=== PATIENT | female | born 1940 | race Caucasian/White ===

== ENCOUNTER 2017-05-13 11:41 | Observation (INO) | payer MEDICARE ==
--- NOTE | 2017-05-13 12:51 | ED ---
Abdominal Pain HPI - General Chief Complaint: Abdominal Pain Stated Complaint: abdominal pain Time Seen by Provider: 05/13/17 12:20 Source: patient, RN notes reviewed Mode of arrival: ambulatory Limitations: no limitations - History of Present Illness Initial Comments: This is a 77-year-old female who presents with complaints of right sided lower abdominal discomfort. She states it feels crampy currently is pain-free but it does get moderate in severity she was seen at [facility] 2 weeks ago she was diagnosed after having gas possible spastic colon shingles he was seen at [facility] and admitted for day with abdominal cramps she is found have a potassium 2.6 was raised to 3.3 before she was discharged apparently she had EKG monitoring which did not show anything in particular. She presents today because she still has persistent lower abdominal pain in spite of multiple CAT scans has no diagnosis she does have a history of aortic aneurysm no heart disease no history of gastritis though she was diagnosed please with gastroenteritis no known history of gallbladder disease. MD Complaint: abdominal pain - Related Data Home Medications Medication Instructions Recorded Confirmed Atorvastatin [Lipitor] 20 mg PO HS 01/29/15 05/13/17 Cholecalciferol [Vitamin D3] 2,000 unit PO DAILY 01/29/15 05/13/17 Cyanocobalamin [Vitamin B-12] 1,000 mcg PO DAILY 01/29/15 05/13/17 Enalapril [Vasotec] 5 mg PO HS 01/29/15 05/13/17 Levothyroxine Sodium [Synthroid] 137 mcg PO DAILY 01/29/15 05/13/17 Acetaminophen-Codeine 300-30mg 1 tab PO HS 05/13/17 05/13/17 [Tylenol #3] Cholestyramine (with Sugar) 4 gm PO DAILY 05/13/17 05/13/17 [Questran] Gabapentin [Neurontin] 300 mg PO HS 05/13/17 05/13/17 Omeprazole 20 mg PO DAILY 05/13/17 05/13/17 Potassium Chloride [Klor-Con 20] 20 meq PO DAILY 05/13/17 05/13/17 Allergies Allergy/AdvReac Type Severity Reaction Status Date / Time Sulfa (Sulfonamide Allergy Rash/Hives Verified 05/13/17 12:32 Antibiotics) meperidine HCl [From Demerol] AdvReac Unknown Nausea & Verified 05/13/17 12:32 Vomiting Review of Systems ROS Statement: Those systems with pertinent positive or pertinent negative responses have been documented in the HPI. ROS Other: All systems not noted in ROS Statement are negative. Past Medical History Past Medical History: Eye Disorder, GERD/Reflux, Hyperlipidemia, Hypertension, Osteoarthritis (OA), Thyroid Disorder Additional Past Medical History / Comment(s): has aortic aneurysm-dr. monitoring History of Any Multi-Drug Resistant Organisms: None Reported Past Surgical History: Hysterectomy, Orthopedic Surgery Additional Past Surgical History / Comment(s): foot surg., cystocele/rectocele repair, eye surgery. Past Anesthesia/Blood Transfusion Reactions: No Reported Reaction Past Psychological History: No Psychological Hx Reported Smoking Status: Never smoker Past Alcohol Use History: Rare Past Drug Use History: None Reported - Past Family History Mother Family Medical History: Cancer Father Family Medical History: Cancer Sister(s) Family Medical History: Cancer General Exam - General Exam Comments Initial Comments: This is a well-developed well-nourished awake alert oriented 3 female Limitations: no limitations General appearance: alert, in no apparent distress Head exam: Present: atraumatic, normocephalic, normal inspection Eye exam: Present: normal appearance, PERRL, EOMI. Absent: scleral icterus, conjunctival injection, periorbital swelling ENT exam: Present: normal exam, mucous membranes moist Neck exam: Present: normal inspection. Absent: tenderness, meningismus, lymphadenopathy Respiratory exam: Present: normal lung sounds bilaterally. Absent: respiratory distress, wheezes, rales, rhonchi, stridor Cardiovascular Exam: Present: regular rate, normal rhythm, normal heart sounds. Absent: systolic murmur, diastolic murmur, rubs, gallop, clicks GI/Abdominal exam: Present: soft, normal bowel sounds, other (A rash on the right flank area consistent with herpes zoster no weeping of the wounds were now. Examination reveals to be soft with minimal tenderness palpation no guarding rebound masses or bruits). Absent: distended, tenderness, guarding, rebound, rigid Extremities exam: Present: normal inspection, full ROM, normal capillary refill. Absent: tenderness, pedal edema, joint swelling, calf tenderness Back exam: Present: normal inspection Neurological exam: Present: alert, oriented X3, CN II-XII intact Psychiatric exam: Present: normal affect, normal mood Skin exam: Present: warm, dry, intact, normal color. Absent: rash Course Vital Signs 05/13/17 05/13/17 05/13/17 12:13 13:24 15:03 Temperature 97.8 F Pulse Rate 74 65 65 Respiratory 18 16 16 Rate Blood Pressure 166/70 149/74 179/82 O2 Sat by Pulse 99 98 100 Oximetry Medical Decision Making - Medical Decision Making The patient will be admitted to the hospital this is her fourth medical facility visit this week for undiagnosed abdominal pain. She does get increased symptoms when she tries to eat. She has had decreased oral intake. - Lab Data Result diagrams: 05/13/17 12:55 05/13/17 12:55 Lab Results 05/13/17 05/13/17 05/13/17 Range/Units 12:55 12:55 12:55 WBC 4.3 (3.8-10.6) k/uL RBC 4.14 (3.80-5.40) m/uL Hgb 13.2 (11.4-16.0) gm/dL Hct 38.2 (34.0-46.0) % MCV 92.1 (80.0-100.0) fL MCH 31.7 (25.0-35.0) pg MCHC 34.5 (31.0-37.0) g/dL RDW 14.5 (11.5-15.5) % Plt Count 235 (150-450) k/uL Neutrophils % 59 % Lymphocytes % 26 % Monocytes % 7 % Eosinophils % 4 % Basophils % 1 % Neutrophils # 2.5 (1.3-7.7) k/uL Lymphocytes # 1.1 (1.0-4.8) k/uL Monocytes # 0.3 (0-1.0) k/uL Eosinophils # 0.2 (0-0.7) k/uL Basophils # 0.0 (0-0.2) k/uL Sodium 143 (137-145) mmol/L Potassium 3.9 (3.5-5.1) mmol/L Chloride 108 H (98-107) mmol/L Carbon Dioxide 25 (22-30) mmol/L Anion Gap 10 mmol/L BUN 11 (7-17) mg/dL Creatinine 0.50 L (0.52-1.04) mg/dL Est GFR (CKD-EPI)AfAm >90 (>60 ml/min/1.73 sqM) Est GFR (CKD-EPI)NonAf >90 (>60 ml/min/1.73 sqM) Glucose 88 (74-99) mg/dL Plasma Lactic Acid Jarod (0.7-2.0) mmol/L Calcium 9.5 (8.4-10.2) mg/dL Total Bilirubin 0.7 (0.2-1.3) mg/dL AST 16 (14-36) U/L ALT 24 (9-52) U/L Alkaline Phosphatase 59 (38-126) U/L Total Creatine Kinase 53 (30-135) U/L CK-MB (CK-2) 1.6 (0.0-2.4) ng/mL CK-MB (CK-2) Rel Index 3.0 Troponin I <0.012 (0.000-0.034) ng/mL Total Protein 6.4 (6.3-8.2) g/dL Albumin 4.0 (3.5-5.0) g/dL Amylase 61 (30-110) U/L Lipase 72 (23-300) U/L Urine Color Urine Appearance (Clear) Urine pH (5.0-8.0) Ur Specific [place] (1.001-1.035) Urine Protein (Negative) Urine Glucose (UA) (Negative) Urine Ketones (Negative) Urine Blood (Negative) Urine Nitrite (Negative) Urine Bilirubin (Negative) Urine Urobilinogen (<2.0) mg/dL Ur Leukocyte Esterase (Negative) Urine RBC (0-5) /hpf Urine WBC (0-5) /hpf Urine Mucus (None) /hpf 05/13/17 05/13/17 Range/Units 12:55 13:21 WBC (3.8-10.6) k/uL RBC (3.80-5.40) m/uL Hgb (11.4-16.0) gm/dL Hct (34.0-46.0) % MCV (80.0-100.0) fL MCH (25.0-35.0) pg MCHC (31.0-37.0) g/dL RDW (11.5-15.5) % Plt Count (150-450) k/uL Neutrophils % % Lymphocytes % % Monocytes % % Eosinophils % % Basophils % % Neutrophils # (1.3-7.7) k/uL Lymphocytes # (1.0-4.8) k/uL Monocytes # (0-1.0) k/uL Eosinophils # (0-0.7) k/uL Basophils # (0-0.2) k/uL Sodium (137-145) mmol/L Potassium (3.5-5.1) mmol/L Chloride (98-107) mmol/L Carbon Dioxide (22-30) mmol/L Anion Gap mmol/L BUN (7-17) mg/dL Creatinine (0.52-1.04) mg/dL Est GFR (CKD-EPI)AfAm (>60 ml/min/1.73 sqM) Est GFR (CKD-EPI)NonAf (>60 ml/min/1.73 sqM) Glucose (74-99) mg/dL Plasma Lactic Acid Jarod 0.7 (0.7-2.0) mmol/L Calcium (8.4-10.2) mg/dL Total Bilirubin (0.2-1.3) mg/dL AST (14-36) U/L ALT (9-52) U/L Alkaline Phosphatase (38-126) U/L Total Creatine Kinase (30-135) U/L CK-MB (CK-2) (0.0-2.4) ng/mL CK-MB (CK-2) Rel Index Troponin I (0.000-0.034) ng/mL Total Protein (6.3-8.2) g/dL Albumin (3.5-5.0) g/dL Amylase (30-110) U/L Lipase (23-300) U/L Urine Color Light Yellow Urine Appearance Clear (Clear) Urine pH 5.0 (5.0-8.0) Ur Specific [place] 1.007 (1.001-1.035) Urine Protein Negative (Negative) Urine Glucose (UA) Negative (Negative) Urine Ketones Negative (Negative) Urine Blood Trace H (Negative) Urine Nitrite Negative (Negative) Urine Bilirubin Negative (Negative) Urine Urobilinogen <2.0 (<2.0) mg/dL Ur Leukocyte Esterase Negative (Negative) Urine RBC <1 (0-5) /hpf Urine WBC <1 (0-5) /hpf Urine Mucus Rare H (None) /hpf - Radiology Data Radiology results: report reviewed (I did review the imaging and reports no acute findings), image reviewed Disposition Clinical Impression: Abdominal pain, Herpes zoster Disposition: ADMITTED IP TO THIS HOSP Condition: Stable Referrals: Mikki Waller MD [Primary Care Provider] - 1-2 days
[2017-05-13 13:13] LABS: Basophils % (A) 1 %; Eosinophils # (A) 0.2 k/uL (0-0.7); Eosinophils % (A) 4 %; HCT 38.2 % (34.0-46.0); HGB 13.2 gm/dL (11.4-16.0); Lymphocytes # (A) 1.1 k/uL (1.0-4.8); Lymphocytes % (A) 26 %; MCH 31.7 pg (25.0-35.0); MCHC 34.5 g/dL (31.0-37.0); MCV 92.1 fL (80.0-100.0); Mean Platelet Volume 7.1; Monocytes # (A) 0.3 k/uL (0-1.0); Monocytes % (A) 7 %; Neutrophils # (A) 2.5 k/uL (1.3-7.7); Neutrophils % (A) 59 %; Platelet Count 235 k/uL (150-450); RBC 4.14 m/uL (3.80-5.40); RDW 14.5 % (11.5-15.5); WBC 4.3 k/uL (3.8-10.6)
[2017-05-13 13:22] LABS: ALT 24 U/L (9-52); AST 16 U/L (14-36); Alkaline Phosphatase 59 U/L (38-126); Amylase 61 U/L (30-110); Anion Gap 10 mmol/L; Blood Urea Nitrogen 11 mg/dL (7-17); Calcium 9.5 mg/dL (8.4-10.2); Carbon Dioxide 25 mmol/L (22-30); Chloride 108 mmol/L (98-107); Glucose 88 mg/dL (74-99); Lipase 72 U/L (23-300); Potassium 3.9 mmol/L (3.5-5.1); Sodium 143 mmol/L (137-145); Total Bilirubin 0.7 mg/dL (0.2-1.3); Total Protein 6.4 g/dL (6.3-8.2)
[2017-05-13 13:32] LABS: Creatine Kinase 53 U/L (30-135)
[2017-05-13 13:38] LABS: Appearance,Urine Clear (Clear); Bilirubin,Urine Negative (Negative); Blood,Urine Trace (Negative); Color,Urine Light Yellow; Glucose,Urine (UA) Negative (Negative); Ketones,Urine Negative (Negative); Leukocyte Esterase,Urine Negative (Negative); Mucus,Urine Rare /hpf; Nitrite,Urine Negative (Negative); Protein,Urine Negative (Negative); RBC,Urine <1 /hpf (0-5); Specific Gravity,Urine 1.007 (1.001-1.035); Urobilinogen,Urine <2.0 mg/dL (<2.0); WBC,Urine <1 /hpf (0-5)
--- NOTE | 2017-05-13 13:38 | XR ---
EXAMINATION TYPE: XR chest 2V DATE OF EXAM: 05/13/2017 COMPARISON: NONE HISTORY: Shortness of breath TECHNIQUE: Frontal and lateral views of the chest are obtained. FINDINGS: Scattered senescent parenchymal changes noted. No evidence for infiltrate. No evidence for atelectasis. Heart size is stable. Mediastinal structures are stable and grossly unremarkable. No evidence for hilar prominence. Degenerative changes dorsal spine. IMPRESSION: 1. No evidence for acute pulmonary disease.
--- NOTE | 2017-05-13 13:39 | XR ---
EXAMINATION TYPE: XR KUB DATE OF EXAM: 05/13/2017 COMPARISON: NONE HISTORY: Pain TECHNIQUE: Single supine KUB image of the abdomen is obtained FINDINGS: Small bowel demonstrates no evidence for dilatation or air fluid levels. Gas and fecal material is seen in non-distended colon. No convincing evidence for pneumoperitoneum. No unusual calcifications. The lung bases are clear. The osseous structures are intact. IMPRESSION: 1. Overall nonobstructive bowel gas pattern.
[2017-05-13 13:44] LABS: Creatine Kinase MB 1.6 ng/mL (0.0-2.4); Troponin I <0.012 ng/mL (0.000-0.034)
[2017-05-13] MEDS ORDERED: ONDANSETRON 4 MG/2 ML VIAL IVP PRN (16:07)
[2017-05-13] MEDS ORDERED: NALOXONE 0.4 MG/ML 1 ML VIAL IV PRN (16:07)
--- NOTE | 2017-05-13 17:22 | US ---
EXAMINATION TYPE: US gallbladder DATE OF EXAM: 05/13/2017 COMPARISON: NONE CLINICAL HISTORY: Pain. EXAM MEASUREMENTS: Liver Length: 12.2 cm Gallbladder Wall: 0.3 cm CBD: 0.5 cm Right Kidney: 12.1 x 4.0 x 4.6 cm Patient has extensive midline bowel gas. Pancreas: Upper limits of normal duct measuring 0.2cm Liver: 2 liver cysts noted, largest measuring 1.7 x 1.2 x 1.6cm Gallbladder: portions visualized wnl, however very limited views due to overlying bowel gas Evidence for sonographic Sykes's sign: no CBD: limited evaluation due to overlying bowel gas Right Kidney: No hydronephrosis or masses seen, inferior pole partially obscured by bowel gas IMPRESSION: Limited evaluation given overlying content. No distinct abnormality is appreciated at thi s time.
[2017-05-13] MEDS: Acetaminophen-Codeine 300-30mg TAB PO SCH (19:43)
[2017-05-13] MEDS: GABAPENTIN 300 MG CAP PO SCH (19:44)
[2017-05-13] MEDS: ATORVASTATIN 20 MG TAB PO SCH (19:44)
[2017-05-13] MEDS: LISINOPRIL 10 MG TAB PO SCH (19:44)
[2017-05-13] MEDS: PANTOPRAZOLE 40 MG/10 ML VIAL IV SCH (19:45)
[2017-05-13] MEDS: SODIUM CHLORIDE 0.9% 1,000 ML IV SCH (23:49)
[2017-05-14] MEDS: LEVOTHYROXINE 137 MCG TAB PO SCH (05:50)
[2017-05-14] MEDS: SODIUM CHLORIDE 0.9% 1,000 ML IV SCH ×3 (05:54→21:26)
[2017-05-14] MEDS: CYANOCOBALAMIN 500 MCG TAB PO SCH (07:54)
[2017-05-14] MEDS: CHOLECALCIFEROL 1,000 UNIT TAB PO SCH (07:54)
[2017-05-14] MEDS: CHOLESTYRAMINE (WITH SUGAR) 4 GM PACKET PO SCH (07:54)
[2017-05-14] MEDS: PANTOPRAZOLE 40 MG/10 ML VIAL IV SCH ×2 (07:59→20:38)
--- NOTE | 2017-05-14 08:01 | P.CONS ---
History of Present Illness - Reason for Consult Consult date: 05/14/17 Abdominal pain Requesting physician: Zee Ahn - History of Present Illness 77-year-old female recently evaluated by the GI service at [facility] on Wednesday of this week for UTI, intractable nausea vomiting upper midepigastric right upper quadrant abdominal pain diarrhea 2 weeks. Patient was treated for suspected gastroenteritis. Prior to discharge her diarrhea was improving with Questran as well as her upper GI symptoms. Yesterday her symptoms recurred reporting more pain when drinking or eating meals. She also has shingle breakout to the right flank. Denies hematemesis hematochezia melena. Ultrasound of the abdomen mentioning of stones. No distinct abnormalities appreciated at time of exam. White count 4.3. Hemoglobin 13.2. BUN 11. Creatinine 0.5. LFTs within normal limits. Lipase 72. Colonoscopy less than a year ago to her memory unremarkable. No recent EGD. Review of Systems Constitutional: Denies fever, chills, sweats, weight gain, or loss. HEENT: Negative for migraines, blurred vision or loss, earaches, drainage, tinnitus, oral mucosal lesions, dysphagia, or odynophagia. CARDIAC: Hyperlipidemia. Hypertension. Negative for chest pain, arrhythmias, or palpitation. RESPIRATORY: Asthma. Negative for shortness of breath, hemoptysis, cough, or sputum production. GI: See HPI for pertinent findings. : Negative for hematuria, urgency, frequency, polyuria, or dysuria. GYNc: Denies possibility of . Negative vaginal discharge. MUSCULOSKELETAL: Negative for muscle aches, swelling, arthritis, and arthralgias. NEUROLOGIC: Negative for stroke or TIA. ENDOCRINE: Negative for thyroid problems. SKIN: Presently with shingles. Negative for rash or itching. PSYCHIATRIC: Negative history for depression and anxiety Past Medical History Past Medical History: Asthma, Eye Disorder, GERD/Reflux, Hyperlipidemia, Hypertension, Osteoarthritis (OA), Thyroid Disorder Additional Past Medical History / Comment(s): has aortic aneurysm- monitoring History of Any Multi-Drug Resistant Organisms: None Reported Past Surgical History: Hysterectomy, Orthopedic Surgery Additional Past Surgical History / Comment(s): foot surg., cystocele/rectocele repair, eye surgery, cartaract removal, akanksha knee replacements Past Anesthesia/Blood Transfusion Reactions: No Reported Reaction Past Psychological History: No Psychological Hx Reported Smoking Status: Never smoker Past Alcohol Use History: Rare Past Drug Use History: None Reported - Past Family History Mother Family Medical History: Cancer Father Family Medical History: Cancer Sister(s) Family Medical History: Cancer Medications and Allergies Home Medications Medication Instructions Recorded Confirmed Type Atorvastatin [Lipitor] 20 mg PO HS 01/29/15 05/13/17 History Cholecalciferol [Vitamin D3] 2,000 unit PO DAILY 01/29/15 05/13/17 History Cyanocobalamin [Vitamin B-12] 1,000 mcg PO DAILY 01/29/15 05/13/17 History Enalapril [Vasotec] 5 mg PO HS 01/29/15 05/13/17 History Levothyroxine Sodium [Synthroid] 137 mcg PO DAILY 01/29/15 05/13/17 History Acetaminophen-Codeine 300-30mg 1 tab PO HS 05/13/17 05/13/17 History [Tylenol #3] Cholestyramine (with Sugar) 4 gm PO DAILY 05/13/17 05/13/17 History [Questran] Gabapentin [Neurontin] 300 mg PO HS 05/13/17 05/13/17 History Omeprazole 20 mg PO DAILY 05/13/17 05/13/17 History Potassium Chloride [Klor-Con 20] 20 meq PO DAILY 05/13/17 05/13/17 History Allergies Allergy/AdvReac Type Severity Reaction Status Date / Time Sulfa (Sulfonamide Allergy Rash/Hives Verified 05/13/17 12:32 Antibiotics) meperidine HCl [From Demerol] AdvReac Unknown Nausea & Verified 05/13/17 12:32 Vomiting Physical Exam Vitals: Vital Signs Temp Pulse Pulse Resp BP BP Pulse Ox 05/14/17 07:00 97.1 F L 66 22 128/71 97 05/13/17 22:47 99.7 F H 65 14 128/61 95 05/13/17 18:55 97.2 F L 75 18 192/89 97 05/13/17 18:12 98.7 F 68 19 179/80 99 05/13/17 15:03 65 16 179/82 100 05/13/17 13:24 65 16 149/74 98 05/13/17 12:13 97.8 F 74 18 166/70 99 Intake and Output 05/13/17 05/14/17 05/14/17 22:59 06:59 14:59 Other: # Voids 1 1 General appearance: The patient is alert, oriented, in no acute distress. HET: Head is normocephalic and atraumatic. Pupils are equal and reactive. Oropharynx is clear without lesions. Neck: Supple without lymphadenopathy. Trachea midline. Heart: S1 S2. Regular rate and rhythm. Lungs: No crackles or wheezes are heard. Abdomen: Soft, mild midepigastric tenderness, nondistended with bowel sounds. No peritoneal signs. No palpable organomegaly or masses. Extremities: Shingles breakout right flank with vesicles scabs. Normal skin color and turgor. No cyanosis, rash, ulceration, clubbing, or edema. Radial and pedal pulses are 2/4 bilaterally. Neurological: No focal deficits. Strength and sensation are grossly intact. Results CBC & Chem 7: 05/13/17 12:55 05/13/17 12:55 Labs: Abnormal Lab Results - Last 24 Hours (Table) 05/13/17 05/13/17 Range/Units 12:55 13:21 Chloride 108 H (98-107) mmol/L Creatinine 0.50 L (0.52-1.04) mg/dL Urine Blood Trace H (Negative) Urine Mucus Rare H (None) /hpf US - abdomen: report reviewed (Dr. Tucker) Assessment and Plan (1) Epigastric abdominal pain Narrative/Plan: 77-year-old female recently hospitalized earlier this week at an outside facility for suspected UTI and gastroenteritis with persistent abdominal pain especially with meals as well as herpes zoster outbreak. Differentials to consider is peptic ulcer disease possible biliary dyskinesia. Current Visit: Yes Status: Acute Code(s): R10.13 - EPIGASTRIC PAIN SNOMED Code(s): 46152233 (2) Herpes zoster Current Visit: Yes Status: Acute Code(s): B02.9 - ZOSTER WITHOUT COMPLICATIONS SNOMED Code(s): 0619612 Plan: 1. EGD and HIDA scan was discussed. Continue PPI twice a day. Continue cholestyramine. Presently without diarrhea. EGD today possible HIDA scan. Further recommendations forthcoming. The finishing powder press operator has discussed the risks, benefits and alternative therapies for the above-mentioned procedure and for both sedation/analgesia as well as necessary blood product administration, if indicated, as they pertain to this patient. The patient has indicated understanding and acceptance of the risks and procedures discussed. Thank you for this kind referral and the opportunity to participate in the care of your patient. This consultation was discussed with Dr. Tucker. The impression and plan of care have been directed as dictated.
--- NOTE | 2017-05-14 12:41 | NM ---
EXAMINATION TYPE: NM hepatobiliary w CCK DATE OF EXAM: 05/14/2017 COMPARISON: Ultrasound gallbladder 05/13/2017 HISTORY: Abdominal pain TECHNIQUE: After the intravenous administration of 5.11 mCi Tc 99m Mebrofenin hepatobiliary scintigra phy is performed. Immediate images post injection. FINDINGS: There is satisfactory initial accumulation of tracer by the liver. The gallbladder is visualized wit hin 10 minutes. The small bowel activity is noted on delayed images. At one hour CCK was administer ed, patient was injected with 1.2 mcg of Kinevac, and gallbladder ejection fraction is calculated at 80 %. Therefore there is no scintigraphic evidence of cystic or common bile duct obstruction to sugg est acute cholecystitis or gallbladder dyskinesia. IMPRESSION: There is delayed small bowel activity, gallbladder ejection fraction 80%.
[2017-05-14] MEDS: POTASSIUM CHLORIDE ER 20 MEQ TAB.ER PO SCH (13:27)
[2017-05-14 14:44] VITALS: BMI 23.6
[2017-05-14] MEDS: IBUPROFEN 400 MG TAB PO PRN (15:56)
--- NOTE | 2017-05-14 19:29 | HP ---
HISTORY AND PHYSICAL DATE OF SERVICE: 05/14/2017. CHIEF COMPLAINT: Abdominal pain. BRIEF HISTORY: Patient is a 77-year-old female patient transferred from [facility] where she was evaluated by GI series for possible UTI and intractable nausea, vomiting and upper mid epigastric pain for 2 weeks. Patient was treated for suspected gastroenteritis. The patient's symptoms worsened. In the meantime, patient had breakdown of shingles in the right flank area. The patient had ultrasound of the abdomen done. In the ED, patient's white blood count was found to be 4.3, hemoglobin 13, creatinine 0.5. The liver functions were normal. Lipase was 72. She is admitted for further GI evaluation. Patient's last colonoscopy was less than a year ago. PAST MEDICAL HISTORY: 1. Significant for asthma. 2. Gastroesophageal reflux disease. 3. Hyperlipidemia. 4. Hypertension. 5. Osteoarthritis. 6. Aortic aneurysm. PAST SURGICAL HISTORY: Significant for hysterectomy, cystocele and rectocele repair, eye surgery, cataract removal, bilateral knee replacement. SOCIAL HISTORY: Patient has no history of smoking or alcohol abuse. FAMILY HISTORY: Significant for history of cancer in the family. Patient is not sure which one. She is ALLERGIC TO SULFA DRUGS AND MEPERIDINE. MEDICATIONS: Patient is on Lipitor 20 mg q.h.s., vitamin D 2000 units p.o. daily, vitamin B12 1000 mcg daily, Vasotec 5 mg p.o. daily, Synthroid 137 mcg daily, Tylenol #3 1 tablet p.o. daily, cholestyramine 4 mg p.o. daily, Neurontin 300 mg p.o. q.h.s., omeprazole 20 mg daily, potassium chloride 20 mEq daily. REVIEW OF SYSTEM: CONSTITUTIONAL: Patient denies fever, chills or sweats, weight gain or weight loss. HEENT: Denies blurring of vision or loss of vision. No earache or speech problems. No migraines. CARDIAC: History of hypertension, hyperlipidemia. RESPIRATORY: History of asthma. GI: As per HPI. GENITOURINARY: Denies dysuria, hematuria. GYNECOLOGICAL: Denies vaginal discharge. MUSCULOSKELETAL: Denies joint swelling and tenderness. NEUROLOGICAL EXAMINATION: No dizziness, lightheadedness. ENDOCRINE: No history of thyroid problems. SKIN: Shingles per HPI. The rest of 14-point review of system is unremarkable. PHYSICAL EXAMINATION: GENERAL: Patient is awake, alert, oriented. She is in no acute distress. VITAL SIGNS: Temperature of 97.1, pulse 66, respiration 22, blood pressure 128/71, O2 saturation 97%. HEENT: Atraumatic, normocephalic. Pupils equal and reactive to light. Extraocular movements intact. Buccal mucosa is moist. NECK: Supple. No goiter, lymphadenopathy. JVD is negative. No carotid bruit heard. Lungs are clear to auscultate. No rales, rhonchi, or wheezes. Heart is regular rate and rhythm without any murmurs or gallop rhythm. ABDOMEN: Soft. Mild midepigastric tenderness. No distention. No guarding or rigidity. Bowel sounds positive. Patient on the right flank the patient has vesicular scabs. EXTREMITIES: No edema, clubbing, cyanosis. Pulses are palpable. NEUROLOGICAL EXAMINATION: Cranial nerves 2-12 grossly intact. No gross motor or sensory deficit. Skin as described above, right flank vesicular rash. LABS AND X-RAY DATA: Chemical profile: Sodium 143, potassium 3.9, chloride 108, bicarb 25, BUN 11, creatinine 0.50, glucose 88. CBC: White blood count of 4.3, hemoglobin 13.2, hematocrit 38.2, and platelet count of 235. ASSESSMENT: 1. Intractable nausea and vomiting. 2. Rule out acute cholecystis versus gastroenteritis versus herpes zoster. 3. Hypothyroidism. 4. Hypertension. 5. Hyperlipidemia. PLAN: Transfer patient to general medical medical floor. Start patient on IV fluids, keep her n.p.o. for HIDA scan. Consult Gastroenterology for possible EGD. MMODL / IJN: [id number] /
[2017-05-14] MEDS: GABAPENTIN 300 MG CAP PO SCH (20:38)
[2017-05-14] MEDS: LISINOPRIL 10 MG TAB PO SCH (20:38)
[2017-05-14] MEDS: Acetaminophen-Codeine 300-30mg TAB PO SCH (20:38)
[2017-05-14] MEDS: ATORVASTATIN 20 MG TAB PO SCH (20:38)
[2017-05-15] MEDS ORDERED: LACTATED RINGERS 1,000 ML IV SCH (06:30)
[2017-05-15 07:36] VITALS: RESP 22
[2017-05-15] MEDS ORDERED: IV FLUID CONTINUATION 1,000 ML IV ONE (07:55)
[2017-05-15] MEDS ORDERED: LIDOCAINE 1% INJ 10MG/ML (20 ML MDV) ONE (07:55)
[2017-05-15] MEDS ORDERED: PROPOFOL 10 MG/ML 20 ML VIAL IV ONE (07:55)
--- NOTE | 2017-05-15 08:11 | P.PCN ---
Date of Procedure: 05/15/17 Procedure(s) Performed: BRIEF HISTORY: Patient is a 77-year-old, pleasant, female, in the hospital with epigastric pain for the last 2 weeks' duration. She initially had some nausea vomiting and diarrhea and was treated with possible gastroenteritis but she continued to have persistent epigastric pain.. She is hence scheduled for an upper endoscopy to evaluate further PROCEDURE PERFORMED: Esophagogastroduodenoscopy With biopsy PREOPERATIVE DIAGNOSIS: chronic epigastric pain 2 weeks duration IV sedation per anesthesia. PROCEDURE: After informed consent was obtained, the patient was brought into the endoscopy unit. IV sedation was administered by Anesthesia under continuous monitoring. Initially the Olympus GIF-140 video endoscope was inserted into the mouth. Esophagus intubated without any difficulty. It was gradually advanced into the stomach and duodenum and carefully examined. The bulb and the second part of the duodenum appeared normal. The scope at this time was withdrawn to the stomach, adequately insufflated with air, and upon careful examination, mucosa of the antrum, body, cardia and the fundus appeared normal. The scope was then withdrawn into the esophagus. Small hiatal hernia noted. The GE junction was located at 35 cm from the incisors. There was Duran's esophagus noted in the distal esophagus extending from 32-35 cm from the incisors and multiple biopsies were done from this area. The rest of the esophagus appeared normal. There were no erosions or ulcerations seen and the patient tolerated the procedure well. 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 2.Small hiatal hernia ECOMMENDATIONS: The findings of this examination were discussed with the patient as well as a family. She was advised to follow with the biopsy results. In the meantime she will continue with Protonix 40 mg daily and follow antireflux measures.
[2017-05-15] MEDS: PANTOPRAZOLE 40 MG/10 ML VIAL IV SCH (08:43)
[2017-05-15] MEDS: LEVOTHYROXINE 137 MCG TAB PO SCH (08:43)
[2017-05-15] MEDS: POTASSIUM CHLORIDE ER 20 MEQ TAB.ER PO SCH (08:44)
[2017-05-15] MEDS: CYANOCOBALAMIN 500 MCG TAB PO SCH (08:44)
[2017-05-15] MEDS: CHOLECALCIFEROL 1,000 UNIT TAB PO SCH (08:44)
[2017-05-15] MEDS: CHOLESTYRAMINE (WITH SUGAR) 4 GM PACKET PO SCH (08:48)
[2017-05-15 09:41] LABS: Basophils % (A) 1 %; Eosinophils # (A) 0.1 k/uL (0-0.7); Eosinophils % (A) 4 %; HCT 35.8 % (34.0-46.0); HGB 11.8 gm/dL (11.4-16.0); Lymphocytes # (A) 0.6 k/uL (1.0-4.8); Lymphocytes % (A) 22 %; MCH 30.9 pg (25.0-35.0); MCHC 33.1 g/dL (31.0-37.0); MCV 93.5 fL (80.0-100.0); Mean Platelet Volume 7.6; Monocytes # (A) 0.4 k/uL (0-1.0); Monocytes % (A) 13 %; Neutrophils # (A) 1.6 k/uL (1.3-7.7); Neutrophils % (A) 57 %; Platelet Count 201 k/uL (150-450); RBC 3.83 m/uL (3.80-5.40); RDW 14.2 % (11.5-15.5); WBC 2.8 k/uL (3.8-10.6)
[2017-05-15 09:45] LABS: Anion Gap 10 mmol/L; Blood Urea Nitrogen 6 mg/dL (7-17); Calcium 8.8 mg/dL (8.4-10.2); Carbon Dioxide 25 mmol/L (22-30); Chloride 108 mmol/L (98-107); Glucose 85 mg/dL (74-99); Potassium 3.6 mmol/L (3.5-5.1); Sodium 143 mmol/L (137-145)
[2017-05-15] MEDS: IBUPROFEN 400 MG TAB PO PRN (11:31)
[2017-05-15] MEDS: SODIUM CHLORIDE 0.9% 1,000 ML IV SCH (11:32)
[2017-05-15 14:35] VITALS: BP 111/48; PULSE 71; TEMP 97.3
== END 2017-05-15 15:30 | disposition home or self-care (01) ==
LOC: EC 11:41 → 4MS4W 16:08
PROVIDERS: ADMIT Internal Medicine; ATTEND Internal Medicine
DX: R11.2 Nausea with vomiting, unspecified (principal); R10.13 Epigastric pain; K22.70 Barrett's esophagus without dysplasia; K44.9 Diaphragmatic hernia without obstruction or gangrene; B02.9 Zoster without complications; K21.9 Gastro-esophageal reflux disease without esophagitis; E03.9 Hypothyroidism, unspecified; E78.5 Hyperlipidemia, unspecified; I10 Essential (primary) hypertension; J45.909 Unspecified asthma, uncomplicated; M19.90 Unspecified osteoarthritis, unspecified site; I71.9 Aortic aneurysm of unspecified site, without rupture; Z80.9 Family history of malignant neoplasm, unspecified; Z88.2 Allergy status to sulfonamides; Z88.8 Allergy status to other drugs, medicaments and biological substances; Z79.899 Other long term (current) drug therapy; G89.29 Other chronic pain
CPT/HCPCS: 99285 ×2; 96376; 96361 ×2; 96374; 36415; 88305; 80053; 80048; 82150; 82550; 82553; 83605; 83690; 84484; 85025 ×2; 81001; 71046; 74018; 76705; 78227; 43239; G0378 ×3; A9537; J2805; J2001; J2704; C9113 ×3

== ENCOUNTER 2017-09-27 07:43 | Day surgery (SDC) | payer MEDICARE ==
[2017-09-20 10:48] VITALS: BMI 22.3
[~2017-09-27 07:43] MED LIST: DEXAMETHASONE SOD PHOSPHATE 10 MG/ML 1 ML VIAL IV ONE; HEPARIN SODIUM,PORCINE 5,000 UNIT/ML 1 ML VIAL SQ ONE; LACTATED RINGERS 1,000 ML IV SCH; LIDOCAINE 1% 20 ML VIAL (10MG/ML) FOR IV START INTRADERMA PRN; MIDAZOLAM 2 MG/2 ML VIAL IV PRN; ONDANSETRON 4 MG/2 ML VIAL IVP ONE; SCOPOLAMINE 1.5MG/72HR PATCH TRANSDERM ONE; ceFAZolin IN SWFI 2 GM/20 ML SYRINGE IVP ONE
[2017-09-27 08:21] VITALS: RESP 16
--- NOTE | 2017-09-27 09:08 | P.GSHP ---
History of Present Illness H&P Date: 09/27/17 Chief Complaint: Right upper quadrant pain, gallstones This is a 77-year-old female who's had complaints of right upper quadrant pain. Her recent ultrasound shows evidence of lithiasis. She presents today for laparoscopic cholecystectomy. Past Medical History Past Medical History: Asthma, Eye Disorder, GERD/Reflux, Hyperlipidemia, Hypertension, Osteoarthritis (OA), Thyroid Disorder Additional Past Medical History / Comment(s): Has THORACIC Aortic Aneurysm-dr. marsh. GLAUCOMA, MACULAR DEGENERATION. RLS. CHOLELITHIASIS. History of Any Multi-Drug Resistant Organisms: None Reported Past Surgical History: Hysterectomy, Joint Replacement, Orthopedic Surgery Additional Past Surgical History / Comment(s): foot surg., cystocele/rectocele repair, eye surgery, cartaract removal, akanksha knee replacements. Past Anesthesia/Blood Transfusion Reactions: No Reported Reaction Smoking Status: Never smoker - Past Family History Mother Family Medical History: Cancer Father Family Medical History: Cancer Sister(s) Family Medical History: Cancer Medications and Allergies Home Medications Medication Instructions Recorded Confirmed Type Atorvastatin [Lipitor] 20 mg PO HS 01/29/15 09/27/17 History Cholecalciferol [Vitamin D3] 2,000 unit PO DAILY 01/29/15 09/27/17 History Cyanocobalamin [Vitamin B-12] 1,000 mcg PO DAILY 01/29/15 09/27/17 History Enalapril [Vasotec] 5 mg PO HS 01/29/15 09/27/17 History Levothyroxine Sodium [Synthroid] 137 mcg PO DAILY 01/29/15 09/27/17 History Ibuprofen [Motrin Ib] 500 mg PO Q6H PRN 09/20/17 09/27/17 History Pantoprazole [Protonix] 40 mg PO DAILY 09/20/17 09/27/17 History Allergies Allergy/AdvReac Type Severity Reaction Status Date / Time Sulfa (Sulfonamide Allergy Rash/Hives Verified 09/27/17 08:05 Antibiotics) meperidine HCl [From Demerol] AdvReac Unknown Nausea & Verified 09/27/17 08:05 Vomiting Surgical - Exam Vital Signs Temp Pulse Resp BP Pulse Ox 98.0 F 74 16 195/79 97 09/27/17 08:19 09/27/17 08:19 09/27/17 08:19 09/27/17 08:19 09/27/17 08:19 - General well developed, no distress - Eyes PERRL - ENT normal pinna - Neck no masses - Respiratory normal expansion - Cardiovascular Rhythm: regular - Abdomen Abdomen: soft, non tender Assessment and Plan Assessment: Right upper quadrant pain Chronic cholecystitis/cholelithiasis We'll perform laparoscopic cholecystectomy
[2017-09-27] MEDS ORDERED: PROPOFOL 10 MG/ML 20 ML VIAL IV ONE (09:12)
[2017-09-27] MEDS ORDERED: MIDAZOLAM 2 MG/2 ML VIAL ONE (09:12)
[2017-09-27] MEDS ORDERED: LIDOCAINE 1% INJ 10MG/ML (20 ML MDV) ONE (09:12)
[2017-09-27] MEDS ORDERED: fentaNYL (PF) 50 MCG/ML 2 ML AMP ONE (09:12)
[2017-09-27] MEDS ORDERED: ROCURONIUM BROMIDE 10 MG/ML 10 ML VIAL IV ONE (09:12)
[2017-09-27] MEDS ORDERED: BUPIVACAIN-EPI 0.5%-1:200,000 30 ML VIAL SQ ONE (09:38)
[2017-09-27 10:07] VITALS: TEMP 97.5
[2017-09-27] MEDS ORDERED: LACTATED RINGERS 1,000 ML IV ONE (10:12)
--- NOTE | 2017-09-27 10:22 | P.OP ---
Date of Procedure: 09/27/17 Preoperative Diagnosis: Cholelithiasis Postoperative Diagnosis: Cholelithiasis Procedure(s) Performed: Laparoscopic cholecystectomy Anesthesia: MIKAL Surgeon: Yuan Lopes Estimated Blood Loss (ml): 5 Pathology: other (Gallbladder) Condition: stable Disposition: PACU Description of Procedure: The patient was placed on the operating table. The patient received a general endotracheal tube anesthesia. The patients abdomen was prepped and draped in the usual sterile fashion. Through an infraumbilical stab incision, the fascia of the anterior abdominal wall was grasped with a pair of Kochers and then the Veress needle was placed in the peritoneal cavity. Position of the Veress needle was confirmed with positive drop test. The abdomen was then insufflated. After adequate insufflation, the 10 mm trocar was placed in the peritoneal cavity. Following this the laparoscope was placed in the peritoneal cavity. The patient was placed in the head-up, right side up position and then a 5 mm trocar was placed in the right lateral and right subcostal position under direct visualization. A 8 mm trocar was placed in the epigastric position. The gallbladder was grasped in the fundus and infundibulum. Traction on the gallbladder was placed in the lateral and the cephalad positions. The triangle of Calot was visualized.. The cystic duct was bluntly dissected until the union of the cystic duct and common bile duct was seen. The cystic duct was then divided and sealed with the Harmonic scissors. A PDS Endoloop was then placed throughout the cystic duct stump. The cystic artery divided and sealed with the Harmonic scissors. The gallbladder was then removed from the liver bed using Harmonic scissors. The gallbladder was then extracted through the epigastric port site. Operative field was checked for any bleeding spots and Harmonic scissors was used to coagulate the liver bed. The abdomen was irrigated. The trocars were removed. The skin was closed using interrupted 3-0 Vicryl suture. Dermabond dressing were applied. The patient tolerated the procedure well.
[2017-09-27] MEDS: HYDROmorphone 0.5 MG/0.5 ML SYRINGE IVP PRN ×2 (10:25→10:31)
[2017-09-27 11:39] VITALS: PULSE 74
[2017-09-27 12:14] VITALS: BP 165/77
== END 2017-09-27 12:20 | disposition home or self-care (01) ==
LOC: OR 07:43
PROVIDERS: ATTEND Surgery
DX: K80.10 Calculus of gallbladder with chronic cholecystitis without obstruction (principal); J45.909 Unspecified asthma, uncomplicated; H40.9 Unspecified glaucoma; H35.30 Unspecified macular degeneration; K21.9 Gastro-esophageal reflux disease without esophagitis; E78.5 Hyperlipidemia, unspecified; I10 Essential (primary) hypertension; M19.90 Unspecified osteoarthritis, unspecified site; E07.9 Disorder of thyroid, unspecified; Z96.653 Presence of artificial knee joint, bilateral; Z79.890 Hormone replacement therapy; Z79.899 Other long term (current) drug therapy; Z88.2 Allergy status to sulfonamides; Z88.5 Allergy status to narcotic agent; Z90.710 Acquired absence of both cervix and uterus
CPT/HCPCS: 88304; 47562; J2250; J1644; J1100; J2405; J2001; J3010; J2704; J1170; J0690

== ENCOUNTER → 2023-02-03 | Outpatient (CLI) | payer MEDICARE ==
[2023-02-03 12:48] VITALS: BP 184/76; PULSE 80; RESP 16; TEMP 98
--- NOTE | 2023-02-03 12:58 | P.PAINPG ---
PQRS Measure Charge Sheet Comment: HISTORY OF PRESENT ILLNESS: A 82 yr old female as a referral from Dr Lala presents today w severe and chronic LBP secondary to DDD, spondylosis and facet arthropathy without myelopathy for evaluation. Pt states pain level is provoked at 10 /10 in intensity, constant, localized in the lumbar spine, predominantly axial, achy in character w occasional shooting pain towards the BL hips and LEs. Pain is provoked by standing from a sitting position. Pain is alleviated by Pt x 4 wks which ended in Dec 2022, medications (Tyl Arthritis), manual massage, heat, reclining and rest. Oswestry axial pain score at 10. PMH: OA, Asthma, Eye Disorder, GERD, Hyperlipidemia, HTN, Hypothyroid Disorder, Thoracic AA, Glaucoma, Macular Degeneration, RLS PSH: Laparoscopic Cholecystectomy (2018), Hysterectomy, BL Knee Replacement, Foot Surgery, Eye Surgery, Cataract Extraction, Cystocoele/ Rectocoele Repair SH: Negative x3. Comes from family of 11 siblings FH: Mo- [place]. Fa- [place]. Sis- [place] All: See list Meds: See list REVIEW OF ORGAN SYSTEMS: CONSTITUTIONAL: No fevers or chills. No recent weight lo ss. NEUROLOGICAL: + numbness and tingling along the distal extremities. No seizure disorders or headaches. MUSCULOSKELETAL: + pain PSYCHIATRIC: Denies current depression or suicidal thoughts. Physical Examinations : Constitutional : Cooperative , not in acute distress . Neurologic : Cranial nerve II to XII intact. No focal neurological deficits. Psychiatric : alert & oriented x 3. Matching mood & appropriate affect. Judgment & insight intact. Musculoskeletal : Cervical Spine Motor strength in the deltoid and biceps: Normal right side. Normal Left side Motor strength biceps and the wrist e xtensors: Normal right side . Normal left side Motor strength in the triceps muscle: Normal right side. Normal left side Deep tendon reflexes: Normal at the biceps. Normal at Brachioradialis. Normal at triceps Vertebral body tenderness to deep palpation over Cervical facet loading test: positive bilaterally Spurling test: positive bilaterally Neck distraction test: positive bilaterally Mine sign: positive bilaterally Lumbar spine Motor strength lower extremities ,thigh and legs 5/5 Right side , 5/5 Left side Deep tendon reflexes : Normal Knee Jerk. Normal Ankle Jerk Vertebral body tenderness over L2 Christian Test positive over BL L2-L3 Lumbar facet Loading Test: positive Right / positive Left Range of motion of the lumbar spine Flexion 30 degrees, extension 10 degrees Straight Leg Raise test: Left/ Right positive at degree Micaela test: positive right / positive left. Severe tenderness over the Sacroiliac joint on the Right / Left sides Gaenslen test: positive bilaterally Seated flexion test: positive bilaterally. Sacral spine : Severe tenderness over the Sacroiliac joint: right side / left side Range of motion: Flexion of the lumbar spine <60 degrees Range of motion: Extension of the lumbar spine <20 degrees Gaenslen's Test positive Micaela test: positive right side / left side Thigh Thrust Test Sacral Thrust Test Imaging: MRI noncontrast the lumbar spine from 01/16/23 reviewed Assessment/ Plan : Lumbar DDD Recommendation of JANIS L2-L3 #1. May need a series of injections for optimal pain relief. Risks, benefits of procedure discussed and patient verbalized understanding. Admits to anti- coagulant use or medical history of diabetes. Protocol for discontinuation/ continuation of medications gary procedure discussed. All questions answered. I have spent greater than 30 minutes on patient care today. Dr Gamboa was available by phone for the evaluation of this patient. The time was used to review the medical records including relevant urine studies and Prescription history (MAPs), review of the available imaging, evaluation and examination of the patient, coordination of care with the medical staff and if applicable referring physicians, as well as creation of the medical record - Pain Location Bilateral Lower Back Non-Pharmacological Interventions: Physical Therapy, Position/Reposition Pharmacological Interventions: PRN Medication PQRS Narrative: Smoking Status Never smoker Home Medications: Ambulatory Orders Atorvastatin [Lipitor] 20 mg PO HS 01/29/15 Cholecalciferol [Vitamin D3 (25 Mcg = 1000 Iu)] 2,000 unit PO DAILY 01/29/15 Cyanocobalamin [Vitamin B-12] 1,000 mcg PO DAILY 01/29/15 Enalapril [Vasotec] 5 mg PO HS 01/29/15 Levothyroxine Sodium [Synthroid] 137 mcg PO DAILY 01/29/15 Ibuprofen [Motrin Ib] 500 mg PO Q6H PRN 09/20/17 Pantoprazole [Protonix] 40 mg PO DAILY 09/20/17 Docusate [Colace] 100 mg PO BID #20 capsule 09/27/17 HYDROcodone/APAP 7.5-325MG [[place] 7.5-325] 1 tab PO Q4H PRN 3 Days #18 tab 09/27/17 diazePAM [Valium] 5 mg PO DAILY PRN 1 Days #2 tab 02/03/23 Controlled Substance Measures - Controlled Substance Measures Is patient prescribed a controlled substance at discharge?: Yes When asked, does pt state using other controlled substances?: No If prescribed controlled substance>3 days was MAPS reviewed?: Prescribed <3 Days If Rx opioid, was Start Talking consent form obtained?: Yes Was information provided regarding opioid addiction?: Yes
== END ==
LOC: PNWHC3 12:11
PROVIDERS: ATTEND Specialist
DX: M51.36 Other intervertebral disc degeneration, lumbar region (principal); M19.90 Unspecified osteoarthritis, unspecified site; I10 Essential (primary) hypertension; K21.9 Gastro-esophageal reflux disease without esophagitis; J45.909 Unspecified asthma, uncomplicated; G25.81 Restless legs syndrome; E78.5 Hyperlipidemia, unspecified; E07.9 Disorder of thyroid, unspecified; Z86.79 Personal history of other diseases of the circulatory system; Z86.69 Personal history of other diseases of the nervous system and sense organs; Z88.2 Allergy status to sulfonamides; Z88.8 Allergy status to other drugs, medicaments and biological substances; Z79.890 Hormone replacement therapy; Z79.899 Other long term (current) drug therapy
CPT/HCPCS: 99211

== ENCOUNTER 2023-02-18 09:59 | Day surgery (SDC) | payer MEDICARE ==
[~2023-02-18 09:59] MED LIST changes: -DEXAMETHASONE SOD PHOSPHATE 10 MG/ML 1 ML VIAL IV ONE; -HEPARIN SODIUM,PORCINE 5,000 UNIT/ML 1 ML VIAL SQ ONE; -LIDOCAINE 1% 20 ML VIAL (10MG/ML) FOR IV START INTRADERMA PRN; -MIDAZOLAM 2 MG/2 ML VIAL IV PRN; -ONDANSETRON 4 MG/2 ML VIAL IVP ONE; -SCOPOLAMINE 1.5MG/72HR PATCH TRANSDERM ONE; -ceFAZolin IN SWFI 2 GM/20 ML SYRINGE IVP ONE
[2023-02-18 10:37] VITALS: TEMP 97
[2023-02-18] MEDS ORDERED: methylPREDNISolone ACETATE 40 MG/ML 1 ML VIAL ONE (10:59)
[2023-02-18] MEDS ORDERED: IOPAMIDOL M200 10 ML VIAL ONE (10:59)
--- NOTE | 2023-02-18 11:05 | P.PCN ---
Date of Procedure: 02/18/23 Procedure(s) Performed: PREOPERATIVE DIAGNOSIS: 1- Lumbar Degenerative Disc Diseases 2-Lumbar spondylosis with Facet arthropathy without myelopathy. 3-lumbar spinal stenosis POSTOPERATIVE DIAGNOSIS: 1-lumbar degenerative disc disease. 2-lumbar spondylosis with facet arthropathy without myelopathy. 3-lumbar spinal stenosis. PROCEDURE 1. Lumbar epidural steroid injection under fluoroscopic guidance at the L2-3 level. (Fluoroscopy imaging was available in radiology department) 2. Lumbar epidurogram. ANESTHESIA: Lidocaine 1% 3 and then only. EBL: Minimal PROCEDURE INDICATION: The patient with low back pain and radiculitis symptoms unresponsive to conservative treatment. Fluoroscopy was used to optimize visualization of the needle placement and to maximize safety. PROCEDURE DESCRIPTION / TECHNIQUE: The patient was seen and identified in the preoperative area. Risks, benefits, complications including but not limited to infections ,bleeding ,allergic reaction to the medications ,nerve damage and not complete pain releife , and alternatives were discussed with the patient. The patient agreed to proceed with the procedure and signed the consent, and vital signs were stable. Patient was taken to the OR and time out was completed. The patient was placed in the prone position on procedure table and a pillow was placed under the abdomen to reduce lumbar lordosis. The lumbosacral area was prepped and draped in the usual sterile fashion.ere closely monitored during the procedure. Vital signs was monitered during the entire procedure. Using anterior-posterior fluoroscopy, the L2-3 interlaminar space was identified and the skin over this site was marked and then infiltrated with 1% lidocaine subcutaneously. Subsequently, a 20-gauge Tuohy epidural needle was inserted and advanced toward the epidural space using the ``Loss of resistance technique and guided by AP and lateral fluoroscopy. The correct needle position in the epidural space was verified with the injection of 2 mL of the water soluble contrast dye Isovue 200 contrast and observing an excellent epidurogram with the epidural spread of the dye, after negative aspiration for blood and CSF and in the absence of paresthesias. Again after negative aspiration, a 6 ml mixture containing 40 mg of Depo-medrol ( Preservetive Free ), and 2 ml of preservative free Normal Saline, and 2 ml of preservative free lidocaine 1% solution was injected and a washout of epidurogram was seen. Needle was withdrawn intact, skin was cleansed, and bandages were applied. COMPLICATIONS: None DISPOSITION / PLANS: The patient was placed in a supine position and transferred to the recovery area in a stable condition for observation. There was no evidence of lower extremity motor or sensory deficit after the procedure. Patient was discharged from the recovery room after meeting discharge criteria. Home discharge instructions were given to the patient by the staff. The patient was reexamined prior to discharge. The patient will schedule a follow up in the clinic in 2-4 weeks.
[2023-02-18 11:51] VITALS: BP 121/80; PULSE 72; RESP 18
--- NOTE | 2023-02-18 12:18 | FL ---
EXAMINATION TYPE: FL guided pain mgmt statistic Intraoperative/procedural fluoroscopic services were provided. Total fluoroscopy time is 4.3 seconds with a total of 1 submitted images to PACS. Please se e the operative/procedural note for further details. DAP: [id number] mGym2
== END 2023-02-18 11:48 | disposition home or self-care (01) ==
LOC: ORPAIN 09:59
PROVIDERS: ATTEND Specialist
DX: M51.16 Intervertebral disc disorders with radiculopathy, lumbar region (principal); M47.26 Other spondylosis with radiculopathy, lumbar region; M48.061 Spinal stenosis, lumbar region without neurogenic claudication; Z88.5 Allergy status to narcotic agent; Z88.2 Allergy status to sulfonamides; Z79.82 Long term (current) use of aspirin; Z90.710 Acquired absence of both cervix and uterus; Z79.811 Long term (current) use of aromatase inhibitors
CPT/HCPCS: 62323; J1030; Q9966

== ENCOUNTER → 2023-04-01 | Outpatient (CLI) | payer MEDICARE ==
[2023-04-01 14:06] VITALS: BP 128/70; PULSE 81; RESP 15; TEMP 98.7
--- NOTE | 2023-04-01 14:37 | P.PAINPG ---
Objective - Vital Signs Vital signs: Intake & Output 03/31/23 04/01/23 04/01/23 18:59 06:59 18:59 Weight 55.338 kg PQRS Measure Charge Sheet Comment: HISTORY OF PRESENT ILLNESS: A 82 yr old female presents today w severe and chronic LBP secondary to DDD, spondylosis and facet arthropathy without myelopathy for evaluation s/p JANIS L2- L3 #1. Pt states she experirenced 70% pain relief x 8 wks s/p procedure. Pt states pain level is provoked at 3 /10 in intensity, constant, localized in the lumbar spine, predominantly axial, achy in character w occasional shooting pain towards the BL hips and LEs. Pain is provoked by standing from a sitting position. Pain is alleviated by PT x 4 wks which ended in Dec 2022, medications, manual massage, heat, reclining and rest. Oswestry axial pain score at 8. Interventional procedures include JANIS L2-L3 #1 Medications include Tyl Arthritis REVIEW OF ORGAN SYSTEMS: CONSTITUTIONAL: No fevers or chills. No recent weight loss. NEUROLOGICAL: + numbness and tingling along the distal extremities. No seizure disorders or headaches. MUSCULOSKELETAL: + pain PSYCHIATRIC: Denies current depression or suicidal thoughts. Physical Examinations : Constitutional : Cooperative , not in acute distress . Neurologic : Cranial nerve II to XII intact. No focal neurological deficits. Psychiatric : alert & oriented x 3. Matching mood & appropriate affect. Judgment & insight intact. Musculoskeletal : Cervical Spine Motor strength in the deltoid and b iceps: Normal right side. Normal Left side Motor strength biceps and the wrist extensors: Normal right side . Normal left side Motor strength in the triceps muscle: Normal right side. Normal left side Deep tendon reflexes: Normal at the biceps. Normal at Brachioradialis. Normal at triceps Vertebral body tenderness to deep palpation over Cervical facet loading test: positive bilaterally Spurling test: positive bilaterally Neck distraction test: positive bilaterally Mine sign: positive bilaterally Lumbar spine Motor strength lower extremities ,thigh and legs 5/5 Right side , 5/5 Left side Deep tendon reflexes : Normal Knee Jerk. Normal Ankle Jerk Vertebral body tenderness over L2 Christian Test positive Lumbar facet Loading Test: positive Right / positive Left Range of motion of the lumbar spine Flexion 30 degrees, extension 10 degrees Straight Leg Raise test: Left/ Right positive at degree Micaela test: positive right / positive left. Severe tenderness over the Sacroiliac joint on the Right / Left sides Gaenslen test: positive bilaterally Seated flexion test: positive bilaterally. Sacral spine : Severe tenderness over the Sacroiliac joint: right side / left side Range of motion: Flexion of the lumbar spine <60 degrees Range of motion: Extension of the lumbar spine <20 degrees Gaenslen's Test positive Micaela test: positive right side / left side Thigh Thrust Test Sacral Thrust Test Imaging: MRI noncontrast the lumbar spine from 01/16/23 reviewed Assessment/ Plan : Lumbar DDD Will manage residual pain and may RTC on an as needed basis. All questions answered. I have spent greater than 30 minutes on patient care today. Dr Gamboa was available by phone for the evaluation of this patient. The time was used to review the medical records including relevant urine studies and Prescription history (MAPs), review of the available imaging, evaluation and examination of the patient, coordination of care with the medical staff and if applicable referring physicians, as well as creation of the medical record PQRS Narrative: Smoking Status Never smoker Hx Alcohol Use (MH) No Home Medications: Ambulatory Orders Atorvastatin [Lipitor] 20 mg PO HS 01/29/15 Cholecalciferol [Vitamin D3 (25 Mcg = 1000 Iu)] 2,000 unit PO DAILY 01/29/15 Cyanocobalamin [Vitamin B-12] 1,000 mcg PO DAILY 01/29/15 Enalapril [Vasotec] 5 mg PO HS 01/29/15 Levothyroxine Sodium [Synthroid] 137 mcg PO DAILY 01/29/15 Pantoprazole [Protonix] 40 mg PO DAILY 09/20/17 diazePAM [Valium] 5 mg PO DAILY PRN 1 Days #2 tab 02/03/23 Acetaminophen [Tylenol Arthritis] 1 tab PO DIRECTED 02/16/23 Aspirin [Adult Low Dose Aspirin EC] 81 mg PO DAILY 02/16/23 Controlled Substance Measures - Controlled Substance Measures Is patient prescribed a controlled substance at discharge?: No
== END ==
LOC: PNWHC3 13:28
PROVIDERS: ATTEND Specialist
DX: M51.36 Other intervertebral disc degeneration, lumbar region (principal); Z79.82 Long term (current) use of aspirin; Z88.2 Allergy status to sulfonamides; Z88.8 Allergy status to other drugs, medicaments and biological substances
CPT/HCPCS: 99211

== ENCOUNTER → 2023-08-04 | Outpatient (CLI) | payer MEDICARE ==
[2023-08-04 14:33] VITALS: BP 156/72; PULSE 68; RESP 16
--- NOTE | 2023-08-04 14:57 | P.PAINPG ---
PQRS Measure Charge Sheet Comment: HISTORY OF PRESENT ILLNESS: A 83 yr old female presents today w severe and chronic LBP secondary to DDD, spondylosis and facet arthropathy without myelopathy for evaluation. Pt states pain level is provoked at 10 /10 in intensity, intermittent, localized in the lumbar spine, predominantly axial, achy in character w occasional shooting pain towards the R flank. Pain is provoked by standing from a sitting position. Pain is alleviated by PT x 4 wks which ended in Dec 2022, physician guided stretches every other day since Dec 2022, medications, manual massage, heat, reclining and rest. Oswestry axial pain score at 13. Interventional procedures include JANIS L2-L3 x1 Medications include Tyl Arthritis REVIEW OF ORGAN SYSTEMS: CONSTITUTIONAL: No fevers or chills. No recent weight loss. NEUROLOGICAL: + numbness and tingling along the distal extremities. No seizure disorders or headaches. MUSCULOSKELETAL: + pain PSYCHIATRIC: Denies current depression or suicidal thoughts. Physical Examinations : Constitutional : Cooperative , not in acute distress . Neurologic : Cranial nerve II to XII intact. No focal neurological deficits. Psychiatric : alert & oriented x 3. Matching mood & appropriate affect. Judgment & insight intact. Musculoskeletal : Cervical Spine Motor strength in the deltoid and biceps: Normal right side. Normal Left side Motor strength biceps and the wrist extensors: Normal right side . Normal left side Motor strength in the triceps muscle: Normal right side. Normal left side Deep tendon reflexes: Normal at the biceps. Normal at Brachioradialis. Normal at triceps Vertebral body tenderness to deep palpation over Cervical facet loading test: positive bilaterally Spurling test: positive bilaterally Neck distraction test: positive bilaterally Mine sign: positive bilaterally Lumbar spine Motor strength lower extremities ,thigh and legs 5/5 Right side , 5/5 Left side Deep tendon reflexes : Normal Knee Jerk. Normal Ankle Jerk Vertebral body tenderness over L2 Christian Test positive R< L L2-L3 Lumbar facet Loading Test: positive Right / positive Left Range of motion of the lumbar spine Flexion 30 degrees, extension 10 degrees Straight Leg Raise test: Left/ Right positive at degree Micaela test: positive right / positive left. Severe tenderness over the Sacroiliac joint on the Right / Left sides Gaenslen test: positive bilaterally Seated flexion test: positive bilaterally. Sacral spine : Severe tenderness over the Sacroiliac joint: right side / left side Range of motion: Flexion of the lumbar spine <60 degrees Range of motion: Extension of the lumbar spine <20 degrees Gaenslen's Test positive Micaela test: positive right side / left side Thigh Thrust Test Sacral Thrust Test Imaging: MRI noncontrast the lumbar spine from 01/16/23 reviewed Assessment/ Plan : Lumbar DDD Recommendation of JANIS L2-L3 #2. May need a series of injections for optimal pain relief. Risks, benefits of procedure discussed and patient verbalized understanding. Protocol for discontinuation/continuation of medication surrounding procedure discussed. All questions answered. I have spent greater than 30 minutes on patient care today. Dr Gamboa was available by phone for the evaluation of this patient. The time was used to review the medical records including relevant urine studies and Prescription history (MAPs), review of the available imaging, evaluation and examination of the patient, coordination of care with the medical staff and if applicable referring physicians, as well as creation of the medical record PQRS Narrative: Smoking Status Never smoker Hx Alcohol Use (MH) No Home Medications: Ambulatory Orders Atorvastatin [Lipitor] 20 mg PO HS 01/29/15 Cholecalciferol [Vitamin D3 (25 Mcg = 1000 Iu)] 2,000 unit PO DAILY 01/29/15 Cyanocobalamin [Vitamin B-12] 1,000 mcg PO DAILY 01/29/15 Enalapril [Vasotec] 5 mg PO HS 01/29/15 Levothyroxine Sodium [Synthroid] 137 mcg PO DAILY 01/29/15 Pantoprazole [Protonix] 40 mg PO DAILY 09/20/17 diazePAM [Valium] 5 mg PO DAILY PRN 1 Days #2 tab 02/03/23 Acetaminophen [Tylenol Arthritis] 1 tab PO DIRECTED 02/16/23 Aspirin [Adult Low Dose Aspirin EC] 81 mg PO DAILY 02/16/23 Controlled Substance Measures - Controlled Substance Measures Is patient prescribed a controlled substance at discharge?: No
== END ==
LOC: PNWHC3 14:11
PROVIDERS: ATTEND Specialist
DX: M51.36 Other intervertebral disc degeneration, lumbar region (principal); Z88.2 Allergy status to sulfonamides; Z88.8 Allergy status to other drugs, medicaments and biological substances
CPT/HCPCS: 99211